=== PATIENT | male | born 1950 | race Caucasian/White ===

== ENCOUNTER → 2018-05-31 | Outpatient (CLI) | payer OTHER ==
[~2018-05-31] VITALS: Ht 177.8 cm; Wt 106.6 kg
[~2018-05-31] MED LIST: ACCUNEB SO1.25 MG/1; ADVAIR 250-501 EACH INH; ASPIR 8181 MG; FENOFIBRATE160 MG; FISH OIL 1,001000 M2; FLEXERIL PO; GLUCOSAMIN-CHO1 EACH; IRON325; LIPITOR10 MG; LISINOPRIL30 MG; MULTIVITAMINS1 EAC7; NAPROSYN500 MG PO; NITROGLYCERIN0.4 MG; NORCO 7.5-3251 EACH PO; PREDNISONE 10 M10 MG PO; SYMBICORT160 MCG/4.; VITAMIN D3400 UNI1 PO; ZETIA10 MG PO
[2018-05-31 12:53] VITALS: BP 149/94
--- NOTE | 2018-05-31 13:29 | NUR ---
Pain Clinic Assessment: 1. History of Osteoarthritis: Left Lower Extremity Right Lower Extremity History of Rheumatoid Arthritis: Not Applicable 2. Height: 5 ft. 10 in. 177.8 cm. Weight: 235.0 lb. oz. 106.596 kg. Patient's BMI: 33.7 3. Vital Signs: BP: 149/94 Pulse: 74 Resp: 16 Temp: 02 Sat: 97 ECG Mon: 4. Pain Intensity: 4 NOW 5. Fall Risk: Dizziness: Y Needs help standing or walking: N Fallen in the last 3 months: Y Fall risk comments: 6. Patient on Blood Thinner: None 7. History of Hypertension: Y 8. Opioid Therapy greater than 6 weeks: N Opiate Contract Signed: 9. Risk Assessment Tool Provided: 10. Functional Assessment Tool: 11. Recreational Drug Use: Never Drug Type: Tobacco Use: Current Every Day Smoker Tobacco Type: Cigarettes Amount or Packs/day: <1 How Many Years: 30 Alcohol Use: Yes Frequency: Special Occasions Quant: 1-2
== END ==
LOC: PAIN 06:48
DX: M54.5 Low back pain (principal); M79.604 Pain in right leg; F17.210 Nicotine dependence, cigarettes, uncomplicated; Z79.899 Other long term (current) drug therapy; Z72.89 Other problems related to lifestyle

== ENCOUNTER → 2021-03-26 | Outpatient (CLI) | payer BC ==
[~2021-03-26] VITALS: Ht 177.8 cm; Wt 112.5 kg
[~2021-03-26] MED LIST changes: -ACCUNEB SO1.25 MG/1; +ACCUNEB SO1.25 MG/1 INH; +ADULT LOW DOSE81 MG PO; -ASPIR 8181 MG; +EZETIMIBE10 MG PO; -FISH OIL 1,001000 M2; +FISH OIL 1,001000 M2 PO; -GLUCOSAMIN-CHO1 EACH; +GLUCOSAMIN-CHO1 EACH PO; -IRON325; +IRON325 PO; -MULTIVITAMINS1 EAC7; -NITROGLYCERIN0.4 MG; +NITROGLYCERIN0.4 MG SUBLING; +NORVASC5 MG PO; +PRAVASTATIN SOD10 MG PO; +PREVAGEN PO; +SUPER THERAVIT1 EACH PO
[2021-03-26 09:11] VITALS: BP 130/65
--- NOTE | 2021-03-26 10:35 | EKG ---
[place] [address] [facility] [place] [address] ELECTROCARDIOGRAM REPORT Name: ROSEMARIE RODRIGUEZ Room #: [facility]#: [id number] Admission: 03/26/21 Attend Phys: Oren Sam MD Discharge: Date of : 54 Report #: [id number] [facility] Test Date: 2021-03-26 Test Time: 09:25:49 Pat Name: ROSEMARIE RODRIGUEZ Department: Room: Gender: Litigation Legal Assistant: CAYLA : 1950 Requested By: Oren Sam Order Number: [id number] : Navi Kemp Measurements Intervals [place] Rate: 58 P: 1 NC: 159 QRS: -35 QRSD: 103 T: 13 QT: 431 QTc: 424 Interpretive Statements Sinus rhythm Left axis deviation Abnormal R-wave progression, early transition No previous ECG available for comparison Electronically Signed On 03-26-2021 10:35:[address] LIGHT REPAIRER by Navi Kemp [email or web address] <ELECTRONICALLY SIGNED> By: Navi Kemp MD, [facility] 03/26/21 1035 09 Navi Kemp MD, FACC /EPI
--- NOTE | 2021-04-01 14:06 | PATH ---
[facility] [address] [place] [address] PATHOLOGY RPT PROCEDURE Name: ROSEMARIE RODRIGUEZ Room #: [facility].#: [id number] Admission: 03/26/21 Date of : 54 Discharge: Report #: [id number] Path Case #: [id number] Note [facility] Accession Number: [id number] TESTS RESULT FLAG UNITS REF RANGE LAB Clinician Provided Cytology Information No. of containers..01 Other (Miscellaneous) Source: BAL RLL DIAGNOSIS: 02 BAL RLL NEGATIVE FOR MALIGNANT CELLS. NORMALAND REACTIVE BRONCHIAL CELLS, INFLAMMATION AND MACROPHAGES ARE PRESENT. PULMONARY MACROPHAGES PRESENT, INDICATIVE OF LOWER RESPIRATORY TRACT SAMPLING. Signed out by: Catherine Estrada MD, Pathologist NPI- [id number] Performed by: Irina Starr, Military Aircraft Designer ([facility]) Gross description: 01 7ML, PINK, CLOUDY /LCS 03/27/2021 1156 Local FLAG LEGEND: L-Low Normal,H-High Normal,LL-Alert Low,HH-Alert High <-Panic Low,>-Panic High,A-Abnormal,AA-Critical Abnormal Performed at: [address] [place] [address] John Rollins MD, [address] [address] Catherine Estrada MD, Specimen Comment: A courtesy copy of this report has been sent to [phone] Specimen Comment: Report sent to Specimen Comment: A duplicate report has been generated due to demographic updates. Performed at: [address], [place], [place] [id number] MD John Rollins MD Phone: [phone]
== END | disposition home or self-care (01) ==
LOC: OR 03-25 10:53 → PUL 07:37 → OR 11:41 → EDSTATUS 15:45 → PUL 15:47
PROVIDERS: ATTEND Pediatrics
DX: R04.2 Hemoptysis (principal); J45.909 Unspecified asthma, uncomplicated; I10 Essential (primary) hypertension; E78.00 Pure hypercholesterolemia, unspecified; G47.30 Sleep apnea, unspecified; Z98.890 Other specified postprocedural states; Z79.899 Other long term (current) drug therapy; Z20.822 Contact with and (suspected) exposure to COVID-19; Z87.891 Personal history of nicotine dependence
CPT/HCPCS: 50010; 62110; 62900; 70005